=== PATIENT | female | born 1985 | race Two or more races ===

== ENCOUNTER 2023-08-27 13:53 | Emergency (ER) | payer MEDICAID ==
[~2023-08-27] VITALS: Ht 154.9 cm; Wt 71.7 kg
[2023-08-27 14:29] VITALS: BP 134/78; PULSE 102; RESP 18; TEMP 97.7; O2SAT 98
[2023-08-27 15:32] LABS: APPEARANCE,URINE CLEAR (CLEAR); BILIRUBIN,URINE NEGATIVE (NEGATIVE); BLOOD, URINE NEGATIVE (NEGATIVE); COLOR,URINE YELLOW (YELLOW); LEUKOCYTE ESTERASE ,URINE NEGATIVE (NEGATIVE); NITRITE, URINE POSITIVE (NEGATIVE); PROTEIN,URINE NEGATIVE (NEGATIVE); UGLUCOSE 3+ (NEGATIVE); UROBILINOGEN,URINE 0.2 EU/dL (0.2 - 1)
[2023-08-27 15:54] LABS: FLU B ANTIGEN NEGATIVE (NEGATIVE)
[2023-08-27 15:55] LABS: FLU A ANTIGEN POSITIVE (NEGATIVE)
[2023-08-27] MEDS ORDERED: TAM75 PO (15:57)
[2023-08-27] MEDS ORDERED: ACET-10509 PO (15:57)
[2023-08-27] MEDS ORDERED: FLONAS NS (15:57)
[2023-08-27 16:03] VITALS: BP 134/78; PULSE 102; RESP 18; TEMP 97.7; O2SAT 98
== END 2023-08-27 16:03 | disposition home or self-care (01) ==
LOC: MED 13:53
DX: J10.1 Influenza due to other identified influenza virus with other respiratory manifestations (principal); Z20.822 Contact with and (suspected) exposure to COVID-19; Z79.899 Other long term (current) drug therapy
CPT/HCPCS: 81003; 81025; 99283